=== PATIENT | female | born 1970 | race Caucasian/White ===

== ENCOUNTER 2020-12-04 11:36 | Outpatient (CLI) | payer OTHER | END 2020-12-04 11:37 | disposition home or self-care (01) | LOC: LAB 11:36 | DX: N95.1 Menopausal and female climacteric states (principal) | CPT/HCPCS: 36415; 82670; 83001; 84403 ==

== ENCOUNTER 2023-04-07 11:09 | Outpatient (CLI) | payer OTHER ==
[2023-04-08 07:10] LABS: ESTRADIOL 44.2 pg/mL (.)
[2023-04-08 08:10] LABS: VITAMIN D 25-HYDROXY 33.3 ng/mL (30.0-100.0)
[2023-04-08 16:08] LABS: FREE TESTOSTERONE(DIRECT) 1.8 pg/mL (0.0-4.2)
== END 2023-04-07 11:10 | disposition home or self-care (01) ==
LOC: LAB.S 11:09
PROVIDERS: ATTEND Naturopath
DX: Z00.00 Encounter for general adult medical examination without abnormal findings (principal); N95.1 Menopausal and female climacteric states
CPT/HCPCS: 36415; 82306; 82670; 83001; 84402; 84403

== ENCOUNTER 2023-12-09 11:01 | Outpatient (CLI) | payer OTHER ==
[2023-12-09 14:52] LABS: ALBUMIN 4.3 g/dL (3.2-5.5); BILIRUBIN,DIRECT 0.12 mg/dL (0.03-0.18); BILIRUBIN,TOTAL 0.5 mg/dL (0.2-1.0); CREATININE 0.7 mg/dL (0.6-1.3); TOTAL PROTEIN 6.5 g/dL (6.4-8.9)
[2023-12-09 20:54] LABS: ESTIMATED AVERAGE GLUCOSE 94 mg/dL (70-100); HEMOGLOBIN A1c% 4.9 % (4.27-6.07)
== END 2023-12-09 11:02 | disposition home or self-care (01) ==
LOC: LAB.S 11:01
PROVIDERS: ATTEND Nurse Practitioner
DX: E66.3 Overweight (principal)
CPT/HCPCS: 36415; 80076; 82565; 83036